=== PATIENT | female | born 1960 | race Caucasian/White ===

== ENCOUNTER 2020-08-07 10:01 | Inpatient (IN) | payer OTHER ==
[~2020-08-07] VITALS: Ht 162.6 cm; Wt 54.8 kg
[2020-08-07] MEDS ORDERED: HYDROmorphone 1 MG/ML, 1ML INJ ONE ×3 (10:24→12:23)
[2020-08-07] MEDS ORDERED: ONDANSETRON 2MG/ML, 2ML ONE (10:24)
--- NOTE | 2020-08-07 10:27 | NUR ---
TP RN: SW AT BEDSIDE.
[2020-08-07] MEDS ORDERED: HYDROmorphone 1 MG/ML, 1ML INJ IV ONE ×3 (10:30→12:30)
[2020-08-07] MEDS ORDERED: ONDANSETRON 2MG/ML, 2ML IVPush ONE (10:30)
--- NOTE | 2020-08-07 11:02 | NUR ---
sw at bedside with family to discuss and form a poc with pt and family
--- NOTE | 2020-08-07 12:23 | NUR ---
TP RN: REQ FOR HOSPITAL BED
[2020-08-07] MEDS ORDERED: ACETAMINOPHEN 325 MG TABLET PO PRN (12:30)
[2020-08-07] MEDS ORDERED: HYDROmorphone 1 MG/ML, 1ML INJ IVPush PRN (12:30)
[2020-08-07] MEDS ORDERED: SODIUM CHLORIDE FLUSH 10ML SYR IVF PRN (12:30)
[2020-08-07] MEDS ORDERED: ONDANSETRON ODT 4 MG PO PRN (12:30)
[2020-08-07] MEDS: FENTANYL 25 MCG PATCH TD SCH (12:30)
[2020-08-07] MEDS ORDERED: ONDANSETRON 2MG/ML, 2ML IVPush PRN (12:30)
[2020-08-07] MEDS ORDERED: METOCLOPRAMIDE 5 MG/ML, 2ML IVPush PRN (12:30)
[2020-08-07] MEDS ORDERED: PROMETHAZINE 25 MG/ML, 1ML IM PRN (12:30)
[2020-08-07] MEDS ORDERED: HYDROmorphone 2 MG/ML, 1ML ONE (13:12)
[2020-08-07] MEDS: HYDROmorphone 2 MG/ML, 1ML IVPush PRN ×2 (13:16→16:02)
[2020-08-07 14:20] VITALS: BP 161/98
[2020-08-07] MEDS: PANTOPRAZOLE 20MG TABLET PO SCH (16:02)
[2020-08-07 17:00] VITALS: BP 163/92
[2020-08-07] MEDS: HYDROmorphone PCA 30 MG/30 ML IV PRN (17:40)
[2020-08-07] MEDS ORDERED: ZOLPIDEM 5MG TABLET PO PRN (21:00)
[2020-08-07 21:03] VITALS: BP 157/83
[2020-08-07] MEDS: POLYETHYLENE GLYCOL 17 GM PACKET PO SCH (22:04)
[2020-08-08 01:31] VITALS: BP 169/91
[2020-08-08 04:43] VITALS: BP 171/93
[2020-08-08] MEDS: ENALAPRILAT 1.25 MG/ML, 2ML IVPush PRN (04:47)
[2020-08-08] MEDS: PANTOPRAZOLE 20MG TABLET PO SCH ×2 (05:38→15:33)
[2020-08-08 05:59] VITALS: BP 165/89
[2020-08-08 06:20] VITALS: BP 169/99
[2020-08-08] MEDS: POLYETHYLENE GLYCOL 17 GM PACKET PO SCH ×2 (09:25→22:27)
[2020-08-08] MEDS: BISACODYL 10 MG SUPP PR SCH (09:25)
[2020-08-08] MEDS: SENNA/DOCUSATE TABLET PO SCH (09:25)
[2020-08-08 12:43] VITALS: BP 154/92
[2020-08-08] MEDS: HYDROmorphone PCA 30 MG/30 ML IV PRN (15:34)
[2020-08-08 19:31] VITALS: BP 177/72
[2020-08-09 02:51] VITALS: BP 188/109
[2020-08-09] MEDS: ENALAPRILAT 1.25 MG/ML, 2ML IVPush PRN ×2 (03:03→03:51)
[2020-08-09 03:44] VITALS: BP 192/111
[2020-08-09 04:28] VITALS: BP 190/79
[2020-08-09] MEDS ORDERED: hydrALAzine 20 MG/ML, 1ML IV ONE (05:00)
[2020-08-09] MEDS ORDERED: AMLODIPINE 5 MG TABLET PO SCH (05:00)
[2020-08-09 06:00] VITALS: BP 97/68
[2020-08-09] MEDS: PANTOPRAZOLE 20MG TABLET PO SCH (06:16)
[2020-08-09 07:24] VITALS: BP 90/60
[2020-08-09] MEDS: BISACODYL 10 MG SUPP PR SCH (09:55)
[2020-08-09] MEDS: POLYETHYLENE GLYCOL 17 GM PACKET PO SCH (09:55)
[2020-08-09] MEDS: SENNA/DOCUSATE TABLET PO SCH (09:55)
[2020-08-09] MEDS ORDERED: HYDROmorphone PCA 30 MG/30 ML IV PRN (11:00)
[2020-08-09 13:05] VITALS: BP 128/84
[2020-08-09] MEDS: LORazepam 2 MG/ML, 1ML IVPush PRN ×4 (13:41→23:07)
[2020-08-09] MEDS: HYDROmorphone PCA 30 MG/30 ML IV PRN (14:47)
[2020-08-10] MEDS: LORazepam 2 MG/ML, 1ML IVPush PRN ×3 (01:05→07:00)
[2020-08-10] MEDS ORDERED: SCOPOLAMINE 1MG PATCH TD ONE (06:00)
[2020-08-10] MEDS: ATROPINE OPHTH SOLN 1%, 2ML MM PRN ×2 (06:42→07:38)
[2020-08-10] MEDS: FENTANYL 25 MCG PATCH TD SCH (13:05)
[2020-08-10] MEDS: HYDROmorphone PCA 30 MG/30 ML IV PRN (13:06)
[2020-08-11] MEDS: LORazepam 2 MG/ML, 1ML IVPush PRN (15:08)
[2020-08-11] MEDS ORDERED: HYDROmorphone PCA 30 MG/30 ML IV PRN ×2 (16:30→17:30)
[2020-08-12] MEDS: LORazepam 2 MG/ML, 1ML IVPush PRN ×3 (00:24→15:11)
== END 2020-08-13 08:30 | disposition expired | DRG 947 ==
LOC: ED 12:17 → EDIP 12:46 → 4NE 13:44 → 4NW 20:26
PROVIDERS: ADMIT Hospitalist; ATTEND Hospitalist
DX: G89.3 Neoplasm related pain (acute) (chronic) (principal); E43 Unspecified severe protein-calorie malnutrition; I10 Essential (primary) hypertension; C43.9 Malignant melanoma of skin, unspecified; K59.00 Constipation, unspecified; Z51.5 Encounter for palliative care; Z66 Do not resuscitate; Z85.3 Personal history of malignant neoplasm of breast; Z85.820 Personal history of malignant melanoma of skin; Z86.718 Personal history of other venous thrombosis and embolism; Z86.73 Personal history of transient ischemic attack (TIA), and cerebral infarction without residual deficits; Z95.828 Presence of other vascular implants and grafts; Z88.1 Allergy status to other antibiotic agents; Z79.899 Other long term (current) drug therapy
CPT/HCPCS: 74018; 93005; 96374; 96375; 96376; 99285; G0378; J1170; J2405; J2550; J0360; J2060